=== PATIENT | female | born 1950 | race Caucasian/White ===

== ENCOUNTER 2018-09-17 06:20 | Inpatient (IN) | payer OTHER, SELFPAY ==
[2018-09-02 09:57] VITALS: BMI 30.2
[2018-09-17] VITALS (14 sets, daily range): BP systolic 100–149; BP diastolic 52–77; PULSE 88–120; RESP 10–18; TEMP 36.3–37.3; O2SAT 91–97; BMI 30.2
--- NOTE | 2018-09-17 | DI.RAD.S_ITS ---
PROCEDURE: XR LUMBAR SPINE 2-3V INDICATIONS: L5-S1 TLIF TECHNIQUE: 2 views of the lumbar spine were acquired. COMPARISON: [facility], MR, MR LUMBAR SPINE W CON, 05/14/2017, 10:53. [facility] [place] [facility], RF, LUMBAR TRANSLAMINAR, 06/29/2017, 9:48. [facility], CR, L-SPINE 2-3 VIEWS, 07/28/2017, 13:13. FINDINGS: Two fluoroscopy images demonstrate discectomy and posterior fusion at L5-S1. A disc prosthesis is present. IMPRESSION: Discectomy and posterior fusion at L5-S1. Dictated by: Erika Andrade M.D. on 09/17/2018 at 11:30 Approved by: Erika Andrade M.D. on 09/17/2018 at 11:32
[2018-09-17] MEDS: CEFAZOLIN 2 GM/100 ML FROZ.PIGGY IV ×3 (08:03→23:54)
--- NOTE | 2018-09-17 08:03 | PM.PREOP ---
Pre-operative Note Interval Note Pre-op Check: Yes History & Physical Reviewed by Physician, Yes Exam Performed and Yes History & Physical exam performed today by Physician Changes: No
--- NOTE | 2018-09-17 08:52 | SUR.OPER ---
Prone on spine table, head in foam head support, padded chest and pelvic supports, gel pad at knees, lower legs supported by pillows; nipples, genitalia and toes free of pressure, arms secured on foam padded arm boards at <90 degrees abduction. Tape over blanket at thigh secured to table.
[2018-09-17] MEDS: BUPIVACAINE 0.25% W/ EPI VIAL 30 ML INJ (09:12)
[2018-09-17] MEDS: BUPIVACAINE LIPOSOME 266 MG/20 ML VIAL INJ (09:13)
[2018-09-17] MEDS: ACETAMINOPHEN IV 1,000 MG/100 ML VIAL 400 MG IV (09:50)
[2018-09-17] MEDS: LACTATED RINGERS 1,000 ML 42 ML IV (10:16)
--- NOTE | 2018-09-17 11:16 | PM.OP.1 ---
Operative Date/Time/Diagnoses Date of procedure: 09/17/18 Time of procedure: 08:16 Pre-op diagnosis: 1. L5-S1 history of microdiscectomy and spinal stenosis 2. L4-5, L5-S1 spondylosis with radiculopathy Post-op diagnosis: same Procedure & Clinicians Procedure: 1. L5-S1 Postero-lateral and posterior interbody fusion 2. L5-S1 interbody cage placement. 3. L5-S1 decompressive laminectomy with bilateral facetecomies 4. L5-S1 Posterior non-segmental instrumentation 5. L4-5 left hemilaminectomy 6. [place] of bone marrow from iliac crest 7. Utilization of microsurgical technique and operating microscope Same procedure as scheduled: Yes Indications: Patient has been having chronic back pain and worsening lumbar radiculopathy. Patient failed multiple conservative management with worsening pain weakness and numbness in her lower extremity. Patient has been having difficulty performing activity of daily living. After discussing risks benefits of treatment options, patient elected proceed with surgery. Surgeon: Jeramy Mendoza Animal Tech: Ragini Cooper Click Yes if Unassisted: No Anesthesia Type: General Operative Notes Closure Type: primary Specimen(s): none sent Implants & Drains: Globus revolve screws, Rise cage Estimated Blood Loss (mL): 50 Blood products transfused: none Procedure in detail: Patient was seen in the preoperative area. Risks and benefits of the surgery was discussed with the patient. Informed consent was obtained from the patient and placed in the chart. Surgical site was marked. Patient was taken to the operative room. General anesthesia was administered. Prophylactic antibiotic was given to the patient less than 30 min before the incision was made. Patient was placed into a prone position on the [place] table. Patient's back was then prepped and draped in the sterile fashion. Time-out was performed at this time. Using AP and lateral C-arm imaging the interval between L4-5 L5-S1 was identified and marked on patient's back. A 2 inch incision 2 in from midline was made on the left side first. The fascia was incised in line with skin incision. Globus MARS retractors was placed inside the incision and docked onto the L5 lamina. Using microsurgical technique and operating microscope, a L5 laminectomy and L5-S1 facetectomy was performed using a Kerrison rongeur. The disc space at L5-S1 was identified. And a total diskectomy was performed at L5-S1 level. The endplates were decorticated using a rasp and shaver. The total diskectomy and decortication was performed at L5-S1 level in order to to accomplish a L5-S1 fusion. The local bone from the laminectomy and facetectomy was saved for local bone grafting. After the total diskectomy and decortication was completed, Globus viacell bone graft material was combined with local bone that was harvested earlier. At this time, a separate skin is incision was made over the iliac crest. A Jamshidi needle was inserted into the iliac crest through a separate skin incision. 5 cc of bone marrow aspiration was obtained through the separate skin incision using a Jamshidi needle from the iliac crest. The bone marrow aspiration was combined with local bone and the via cell bone grafting material. The bone grafting material was placed into the L5-S1 interbody space along with a expandable cage. The cage was expanded to its maximum height using the torque limiting screwdriver. At this time the MARS retractor was redirected over the L4 lamina. Using microsurgical technique and operating microscope, a L4-5 heminectomy was performed using the Kerrison rongeur. The ligamentum flavum was also resected at the side of the hemilaminectomy for further decompression of the epidural space. At this time a mirror image incision was made on the right side. The fascia was incised in line with the skin incision. Globus MARS retractor was inserted and docked onto the L5-S1 posterolateral gutter. Using the power drill, posterior-lateral decortication was performed at L5-S1 level until bleeding cortical bone was identified. The remaining bone grafting material was placed into the L5-S1 posterior lateral gutter he order to accomplish posterolateral fusion at the L5-S1 level. Using the double C-arm technique, pedicle screws were placed into the L5 and S1 pedicles bilaterally. This was done by placing the Jamshidi needle into the pedicles, then placing the guidewires over the Jamshidi needle, and finally placing the cannulated screws over the guidewires bilaterally. After the pedicle screws were placed, 2 titanium rods was locked into the heads of the pedicle screws using locking caps and torque limiting screwdriver. After all the hardware was placed, and confirmed with AP and lateral C-arm imaging, the wound was then irrigated with sterile normal saline and packed with Ray-Anirudh gauze for 3 min to accomplish hemostasis. After the gauze was removed the deep fascia was closed with #1 Vicryl suture. The subcutaneous layer was closed with 2-0 Vicryl. The skin was closed with skin rishabh. Patient tolerated the procedure well. There were no complications. Complications: none Condition: stable Disposition: PACU Plan for aftercare: Admit to inpatient hospital
--- NOTE | 2018-09-17 11:19 | P.OP_ITS ---
Operative Date/Time/Diagnoses Date of procedure: 09/17/18 Time of procedure: 08:16 Pre-op diagnosis: 1. L5-S1 history of microdiscectomy and spinal stenosis 2. L4-5, L5-S1 spondylosis with radiculopathy Post-op diagnosis: same Procedure & Clinicians Procedure: 1. L5-S1 Postero-lateral and posterior interbody fusion 2. L5-S1 interbody cage placement. 3. L5-S1 decompressive laminectomy with bilateral facetecomies 4. L5-S1 Posterior non-segmental instrumentation 5. L4-5 left hemilaminectomy 6. [place] of bone marrow from iliac crest 7. Utilization of microsurgical technique and operating microscope Same procedure as scheduled: Yes Indications: Patient has been having chronic back pain and worsening lumbar radiculopathy. Patient failed multiple conservative management with worsening pain weakness and numbness in her lower extremity. Patient has been having difficulty performing activity of daily living. After discussing risks benefits of treatment options, patient elected proceed with surgery. Surgeon: Jeramy Mendoza Platform Mill Supervisor: Ragini Cooper Click Yes if Unassisted: No Anesthesia Type: General Operative Notes Closure Type: primary Specimen(s): none sent Implants & Drains: Globus revolve screws, Rise cage Estimated Blood Loss (mL): 50 Blood products transfused: none Procedure in detail: Patient was seen in the preoperative area. Risks and benefits of the surgery was discussed with the patient. Informed consent was obtained from the patient and placed in the chart. Surgical site was marked. Patient was taken to the operative room. General anesthesia was administered. Prophylactic antibiotic was given to the patient less than 30 min before the incision was made. Patient was placed into a prone position on the [place] table. Patient's back was then prepped and draped in the sterile fashion. Time- out was performed at this time. Using AP and lateral C-arm imaging the interval between L4-5 L5-S1 was identified and marked on patient's back. A 2 inch incision 2 in from midline was made on the left side first. The fascia was incised in line with skin incision. Globus MARS retractors was placed inside the incision and docked onto the L5 lamina. Using microsurgical technique and operating microscope, a L5 laminectomy and L5-S1 facetectomy was performed using a Kerrison rongeur. The disc space at L5-S1 was identified. And a total diskectomy was performed at L5- S1 level. The endplates were decorticated using a rasp and shaver. The total diskectomy and decortication was performed at L5-S1 level in order to to accomplish a L5-S1 fusion. The local bone from the laminectomy and facetectomy was saved for local bone grafting. After the total diskectomy and decortication was completed, Globus viacell bone graft material was combined with local bone that was harvested earlier. At this time, a separate skin is incision was made over the iliac crest. A Jamshidi needle was inserted into the iliac crest through a separate skin incision. 5 cc of bone marrow aspiration was obtained through the separate skin incision using a Jamshidi needle from the iliac crest. The bone marrow aspiration was combined with local bone and the via cell bone grafting material. The bone grafting material was placed into the L5-S1 interbody space along with a expandable cage. The cage was expanded to its maximum height using the torque limiting screwdriver. At this time the MARS retractor was redirected over the L4 lamina. Using microsurgical technique and operating microscope, a L4-5 heminectomy was performed using the Kerrison rongeur. The ligamentum flavum was also resected at the side of the hemilaminectomy for further decompression of the epidural space. At this time a mirror image incision was made on the right side. The fascia was incised in line with the skin incision. Globus MARS retractor was inserted and docked onto the L5-S1 posterolateral gutter. Using the power drill, posterior- lateral decortication was performed at L5-S1 level until bleeding cortical bone was identified. The remaining bone grafting material was placed into the L5-S1 posterior lateral gutter he order to accomplish posterolateral fusion at the L5- S1 level. Using the double C-arm technique, pedicle screws were placed into the L5 and S1 pedicles bilaterally. This was done by placing the Jamshidi needle into the pedicles, then placing the guidewires over the Jamshidi needle, and finally placing the cannulated screws over the guidewires bilaterally. After the pedicle screws were placed, 2 titanium rods was locked into the heads of the pedicle screws using locking caps and torque limiting screwdriver. After all the hardware was placed, and confirmed with AP and lateral C-arm imaging, the wound was then irrigated with sterile normal saline and packed with Ray-Anirudh gauze for 3 min to accomplish hemostasis. After the gauze was removed the deep fascia was closed with #1 Vicryl suture. The subcutaneous layer was closed with 2-0 Vicryl. The skin was closed with skin rishabh. Patient tolerated the procedure well. There were no complications. Complications: none Condition: stable Disposition: PACU Plan for aftercare: Admit to inpatient hospital
[2018-09-17] MEDS: HYDROMORPHONE 2 MG INJ 1 MG IV (11:33)
[2018-09-17] MEDS: HYDROMORPHONE 0.5 MG INJ IV ×2 (12:57→19:10)
[2018-09-17] MEDS: SODIUM CHLORIDE 0.9% 1,000 ML 100 ML IV ×2 (12:58→23:55)
[2018-09-17] MEDS: ONDANSETRON 4 MG/2 ML INJ IV (12:58)
--- NOTE | 2018-09-17 15:35 | PC.NURSE ---
Pt transferred from PACU with O2 2L=98%; mild nausea, improved with IV Zofran; Pt reported severe pain, IV Dilaudid administered; IV fluids infusing to peripheral IV; pt sleeping after admit for 1-2 hours; in room
--- NOTE | 2018-09-17 15:45 | PT.IIE ---
Current Diagnoses Other spondylosis with radiculopathy, lumbar region (09/17/18) Spinal stenosis, lumbar region without neurogenic claudication (09/17/18) Other specified postprocedural states (09/17/18) Surgery Performed Operation Date: 09/17/18 07:45 Actual Procedures p L4-5 hemilaminectomy, L5-S1 TLIF w/Posterior Instru. - Jeramy Mendoza MD Surgical History (Last Updated 09/02/18 @ 09:57 by Judy Lam RN) History of section (Acute) History of total left hip arthroplasty (Acute ~12/2016) Hx of microdiscectomy (Acute 07/28/17) Medical History (Last Updated 09/02/18 @ 09:57 by Judy Lam RN) Depression (Acute) Hyperlipidemia (Acute) Migraines (Acute) Physical Therapy Inpatient Evaluation/Re-Eval M1 PT/OT-IP Prior Functional Status Start: 09/17/18 16:23 Freq: NEEDED Status: Active Protocol: Document 09/17/18 15:45 AB (Rec: 09/17/18 16:48 AB [id number]) Medical Review Prior Functional Status Medical History Reviewed Yes Communication able to make needs known Mobility and Gait pt stated that she is independent with all mobilities and ambulation without AD Social History Household Members spouse Living Arrangements House Number of Floors (Floors) One Floor Number of Stairs To Enter/Railing? 5 steps to enter with R rail ascending Home Environment Standard Height Toilet Walk in Shower Home Equipment Four Wheel Walker Raised Toilet Seat Without Armrests Hand Held Shower Employment Status Retired Additional Social History Comment stated that spouse works and will not be able to be there 24/7 M2 PT-IP Current Condition Start: 09/17/18 16:23 Freq: NEEDED Status: Active Protocol: Document 09/17/18 15:45 AB (Rec: 09/17/18 16:48 AB [id number]) Physical Therapy Current Condition Current Condition Evaluation Date 09/17/18 Treatment Diagnosis s/p L5S1 fusion/lami L4-5 hemilami; difficulty in walking Onset Date 09/17/18 Precautions Lumbar Precautions Log Roll No Twisting Limit Bending Lifting Restriction of 10 lbs Gait Belt above Incisional Area M3 PT-IP Subjective Start: 09/17/18 16:23 Freq: NEEDED Status: Active Protocol: Document 09/17/18 15:45 AB (Rec: 09/17/18 16:48 AB [id number]) Subjective Physical Therapy Visit Type Type Initial Evaluation Visit Start Time 15:45 Visit Stop Time 16:25 Total Visit Minutes 40 Number of SLATE ROOFER HELPER Visits 0 Physical Therapy Visit Comments Patient Comments pt agreed to get up Therapy Pain Assessment Pain When Pain Assessed At Rest Pain Present Pain Present Pain Reported Location Bilateral Lower Back Intensity 9 Scale Used Numeric (1 - 10) Pain Management Techniques Apply Cold M4 PT-IP Mobility and Gait Start: 09/17/18 16:23 Freq: NEEDED Status: Active Protocol: Document 09/17/18 15:45 AB (Rec: 09/17/18 16:48 AB [id number]) PT-Bed Mobility Assessment Rolling Type of Rolling Log Rolling Level of Assist Standby Assistance Supine to Sit Supine to Sit Standby Assistance Scooting Scooting to Edge of Bed Standby Assistance PT-Transfer Assessment Sit to and From Stand Sit to and from Stand Contact Guard Assistance 1 Person Assistance Equipment Transfer Assistive Device Gait Belt Front Wheeled Walker Orthotic/Prosthetic Devices or Brace: No Transfers Transfer Destination Toilet Transfer Technique pt ambulated to the toilet Transfer Ability Level of Assist Contact Guard Assistance Comments Mobility Comments BP in supine: 132/77 pt c/o nausea upon sitting on EOB. pt sat on EOB for ~ 5 min requiring SBA. BP checked 125 /65. pt pt requested to use the toilet and ambulated using FWW. c/o nausea and BP checked: 131/48. stated that nausea has passed. placed chair close to pt and pt transferred using FWW to chair CGA. BP checked in sitting after transfer: 131/71. Nurse informed. Gait Assessment Gait Gait Assistance Required: Contact Guard Assist Distance (Feet) 10 Able to Maintain Weight Bearing Status Yes During Gait Assistive Devices Assistive Device Gait Belt Front Wheeled Walker Orthotic/Prosthetic Devices or Brace: Yes Gait Deviations General Gait Pattern Decreased Stride Length Decreased Feet Clearance Factors Limiting Gait Function Factors Limiting Gait Function Decreased Activity Tolerance Decreased Strength Pain Poor Balance Poor Safety Awareness PT-Balance Assessment Sitting Balance and Reactions Static Sitting Balance Ability Good Dynamic Sitting Balance Ability Good Standing Balance and Reactions Static Standing Balance Ability Fair Dynamic Standing Balance Ability Fair Device Used FWW M5 PT-IP Objective Assessments Start: 09/17/18 16:23 Freq: NEEDED Status: Active Protocol: Document 09/17/18 15:45 AB (Rec: 09/17/18 16:48 AB [id number]) Orientation Orientation/Cognition Level of Alertness Alert Orientation Name Age Birthday Month Date Year Day of Week Place Situation Safety Awareness Understands Safety Issues Gross Range of Motion Lower Extremity ROM Assessment Within Functional Limits Strength Lower Extremity Strength Assessment Within Functional Limits Coordination Assessment Gross Coordination Gross Coordination WNL Muscle Tone Muscle Tone WNL Yes M6 PT-IP Treatment Start: 09/17/18 16:23 Freq: NEEDED Status: Active Protocol: Document 09/17/18 15:45 AB (Rec: 09/17/18 16:48 AB [id number]) Physical Therapy Treatment Exercises Exercises Ankle Pumps Education Education Provided Precautions Weight Bearing Status Post-Op Packet Safety M7 PT-IP Assessment and Plan Start: 09/17/18 16:23 Freq: NEEDED Status: Active Protocol: Document 09/17/18 15:45 AB (Rec: 09/17/18 16:48 AB [id number]) PT Summary Assessment and Plan Potential Rehabilitation Potential Good Status of Condition at Evaluation Evolving Summary Impairments Pain ROM Strength Balance Coordination Sensation Bed Mobility Transfers Gait Activity Tolerance Assessment Summary pt unable to tolerate much activity due to c/o nausea and increase pain. pt plans to go home with spouse to assist but will not have 25/05 care as spouse works. pt will likely improve during hospital stay and may go home when medically stable. caregiver training will be conducted when appropriate. stair climbing training will also be completed prior to d/c. Goals Bed Mobility Goal Independent Transfer Goal Independent Front Wheeled Walker Four Wheeled Walker Gait Goal Independent Front Wheel Walker Four Wheel Walker Gait Distance 150 Other Goals up/down 5 steps with R rail ascending SBA Days to Meet Goals 3 Frequency of Treatment Frequency Of Treatment Twice a Day Treatment Plan Physical Therapy Treatment Plan Bed Mobility Training Transfer Training Gait Training Therapeutic Exercise Balance Retraining Post Op Education Discharge Planning Hot or Cold Pack Neuromuscular Re-ed Coordination Retraining Manual Therapy Other Recommendations and Next Treatment assess safety with use of 4WW Focus Recommendations To Nursing Amount of Assist Needed 1 Person Assist Discharge Recommendations PT Discharge Recommendations Home with Assistance Equipment Needed for Home Before FWW if not safe with 4WW: pt Discharge stated that she can borrow from the senior center
[2018-09-17] MEDS: LORazepam 0.5 MG TABLET PO ×2 (16:32→21:00)
[2018-09-17] MEDS: OXYCODONE IR 5 MG TABLET 10 MG PO ×2 (16:32→21:00)
[2018-09-17] MEDS: LORazepam 2 MG/ML SYRINGE 0.5 MG IV (18:06)
[2018-09-17] MEDS: ATORVASTATIN 20 MG TABLET 40 MG PO (20:26)
[2018-09-17] MEDS: SENNOSIDES 8.6 MG TABLET 17.2 MG PO (20:26)
[2018-09-17] MEDS: DOCUSATE 100 MG CAPSULE PO (20:26)
[2018-09-17] MEDS: CITALOPRAM 20 MG TABLET PO (20:26)
[2018-09-18 04:30] VITALS: BP 111/52; PULSE 97; RESP 17; TEMP 36.7; O2SAT 96
[2018-09-18] MEDS: OXYCODONE IR 5 MG TABLET 10 MG PO ×4 (04:41→14:51)
[2018-09-18 05:00] VITALS: O2SAT 97
[2018-09-18 05:59] LABS: Hematocrit 33.2 % (36-46); Hemoglobin 11.2 g/dL (12.0-16.0)
[2018-09-18] MEDS: DOCUSATE 100 MG CAPSULE PO (08:36)
[2018-09-18] MEDS: SODIUM CHLORIDE 0.9% FLUSH 10 ML IV (08:42)
--- NOTE | 2018-09-18 09:31 | PT.IPTN ---
Current Diagnoses Other spondylosis with radiculopathy, lumbar region (09/17/18) Spinal stenosis, lumbar region without neurogenic claudication (09/17/18) Other specified postprocedural states (09/17/18) Surgery Performed Operation Date: 09/17/18 07:45 Actual Procedures p L4-5 hemilaminectomy, L5-S1 TLIF w/Posterior Instru. - Jeramy Mendoza MD Physical Therapy Treatment Note M2 PT-IP Current Condition Start: 09/17/18 16:23 Freq: NEEDED Status: Active Protocol: Document 09/17/18 15:45 AB (Rec: 09/17/18 16:48 AB [id number]) Physical Therapy Current Condition Current Condition Evaluation Date 09/17/18 Treatment Diagnosis s/p L5S1 fusion/lami L4-5 hemilami; difficulty in walking Onset Date 09/17/18 Precautions Lumbar Precautions Log Roll No Twisting Limit Bending Lifting Restriction of 10 lbs Gait Belt above Incisional Area M3 PT-IP Subjective Start: 09/17/18 16:23 Freq: NEEDED Status: Active Protocol: Document 09/18/18 09:31 AB (Rec: 09/18/18 10:18 AB [id number]) Subjective Physical Therapy Visit Type Type Treatment Note Visit Start Time 09:31 Visit Stop Time 10:06 Total Visit Minutes 35 Number of BIOPROCESS ENGINEER Visits 0 Physical Therapy Visit Comments Patient Comments I feel flushed. Therapy Pain Assessment Pain When Pain Assessed At Rest Pain Present Pain Present Pain Reported Location Bilateral Lower Back Intensity 4 Scale Used Numeric (1 - 10) Pain Management Techniques Apply Cold Re-positioning Timing of Activity with Medications M4 PT-IP Mobility and Gait Start: 09/17/18 16:23 Freq: NEEDED Status: Active Protocol: Document 09/18/18 09:31 AB (Rec: 09/18/18 10:18 AB [id number]) PT-Bed Mobility Assessment Rolling Type of Rolling Log Rolling Level of Assist Standby Assistance Supine to Sit Supine to Sit Standby Assistance Sit to Supine Sit to Supine Standby Assistance Scooting Scooting to Edge of Bed Standby Assistance PT-Transfer Assessment Sit to and From Stand Sit to and from Stand Standby Assistance Use of Upper Extremities Equipment Transfer Assistive Device Gait Belt Front Wheeled Walker Orthotic/Prosthetic Devices or Brace: No Transfers Transfer Technique pt ambulated to the toilet Comments Mobility Comments completed transfer/ambulation using FWW bed to toilet SBA. pt was able to complete toileting without assist and ambulated towards the sink for handwashing and was able to maintain standing balance SBA. Gait Assessment Gait Gait Assistance Required: Standby Assistance Distance (Feet) 225 Able to Maintain Weight Bearing Status Yes During Gait Assistive Devices Assistive Device Gait Belt 4 Wheeled Walker Factors Limiting Gait Function Factors Limiting Gait Function Decreased Activity Tolerance Decreased Strength Limited Range of Motion Pain Poor Balance Comments Gait Comments pt moving well with FWW. pt has a 4WW and assessed safety with use of 4WW. pt was able to ambulate using 4WW ~ 225 ft SBA. pt refused to do stair climbing this morning. M5 PT-IP Objective Assessments Start: 09/17/18 16:23 Freq: NEEDED Status: Active Protocol: Document 09/17/18 15:45 AB (Rec: 09/17/18 16:48 AB [id number]) Orientation Orientation/Cognition Level of Alertness Alert Orientation Name Age Birthday Month Date Year Day of Week Place Situation Safety Awareness Understands Safety Issues Gross Range of Motion Lower Extremity ROM Assessment Within Functional Limits Strength Lower Extremity Strength Assessment Within Functional Limits Coordination Assessment Gross Coordination Gross Coordination WNL Muscle Tone Muscle Tone WNL Yes M6 PT-IP Treatment Start: 09/17/18 16:23 Freq: NEEDED Status: Active Protocol: Document 09/17/18 15:45 AB (Rec: 09/17/18 16:48 AB [id number]) Physical Therapy Treatment Exercises Exercises Ankle Pumps Education Education Provided Precautions Weight Bearing Status Post-Op Packet Safety M7 PT-IP Assessment and Plan Start: 09/17/18 16:23 Freq: NEEDED Status: Active Protocol: Document 09/18/18 09:31 AB (Rec: 09/18/18 10:18 AB [id number]) PT Summary Assessment and Plan Potential Rehabilitation Potential Good Summary Progress Towards Goals Progressing Toward Goals Assessment Summary pt requiring SBA with mobility and may go home with assist. stated that she has a family emergency and spouse will not be available to assist her but will call her friend to assist her. refused to do stair training this morning but will attempt this afternoon. Goals Bed Mobility Goal Independent Transfer Goal Independent Front Wheeled Walker Four Wheeled Walker Gait Goal Independent Front Wheel Walker Four Wheel Walker Gait Distance 150 Other Goals up/down 5 steps with R rail ascending SBA Days to Meet Goals 3 Frequency of Treatment Frequency Of Treatment Twice a Day Treatment Plan Physical Therapy Treatment Plan Bed Mobility Training Transfer Training Gait Training Therapeutic Exercise Balance Retraining Post Op Education Discharge Planning Hot or Cold Pack Neuromuscular Re-ed Coordination Retraining Manual Therapy Other Recommendations and Next Treatment assess safety with use of 4WW Focus Recommendations To Nursing Amount of Assist Needed 1 Person Assist Discharge Recommendations PT Discharge Recommendations Home with Assistance
--- NOTE | 2018-09-18 11:10 | OT.IP.EVAL ---
Current Diagnoses Other spondylosis with radiculopathy, lumbar region (09/17/18) Spinal stenosis, lumbar region without neurogenic claudication (09/17/18) Other specified postprocedural states (09/17/18) Surgery Performed Operation Date: 09/17/18 07:45 Actual Procedures p L4-5 hemilaminectomy, L5-S1 TLIF w/Posterior Instru. - Jeramy Mendoza MD Past Medical History (Last Updated 09/02/18 @ 09:57 by Judy Lam RN) Depression (Acute) Hyperlipidemia (Acute) Migraines (Acute) Surgical History (Last Updated 09/02/18 @ 09:57 by Judy Lam RN) History of section (Acute) History of total left hip arthroplasty (Acute ~12/2016) Hx of microdiscectomy (Acute 07/28/17) Occupational Therapy Inpatient Evaluation/Re-Eval M1 PT/OT-IP Prior Functional Status Start: 09/17/18 16:23 Freq: NEEDED Status: Active Protocol: Document 09/17/18 15:45 AB (Rec: 09/17/18 16:48 AB [id number]) Medical Review Prior Functional Status Medical History Reviewed Yes Communication able to make needs known Mobility and Gait pt stated that she is independent with all mobilities and ambulation without AD Social History Household Members spouse Living Arrangements House Number of Floors (Floors) One Floor Number of Stairs To Enter/Railing? 5 steps to enter with R rail ascending Home Environment Standard Height Toilet Walk in Shower Home Equipment Four Wheel Walker Raised Toilet Seat Without Armrests Hand Held Shower Employment Status Retired Additional Social History Comment stated that spouse works and will not be able to be there 25/05 M1 PT/OT-IP Prior Functional Status Start: 09/18/18 10:52 Freq: NEEDED Status: Active Protocol: Document 09/18/18 10:52 [facility] (Rec: 09/18/18 11:10 [facility] [id number]) Medical Review Prior Functional Status Medical History Reviewed Yes Diet/Fluid Consistency Regular Thin Liquids Communication able to make needs known Mobility and Gait pt stated that she is independent with all mobilities and ambulation without AD Activities of Daily Living and IADL's Independent for all Adl and IADL needs. Social History Household Members spouse Living Arrangements House Number of Floors (Floors) One Floor Number of Stairs To Enter/Railing? 5 steps to enter with R rail ascending Home Environment Standard Height Toilet Walk in Shower Home Equipment Four Wheel Walker Raised Toilet Seat Without Armrests Hand Held Shower Employment Status Retired Additional Social History Comment stated that spouse works and will not be able to be there 25/05. Ptstates has family emergency and has to fly out of town tomorrow . Pt's daughter may be available to come stay with pt as well as pt's friends. M2 OT-IP Current Condition Start: 09/18/18 10:52 Freq: Status: Active Protocol: Document 09/18/18 10:52 [facility] (Rec: 09/18/18 11:10 [facility] [id number]) Occupational Therapy Current Condition Current Condition Evaluation Date 09/18/18 Treatment Diagnosis Spinal Stenosis Diagnosis Onset Date 09/17/18 Post Operative Precautions Lumbar Precautions Log Roll No Twisting Limit Bending Lifting Restriction of 10 lbs Gait Belt above Incisional Area M3 OT- IP Subjective and Pain Start: 09/18/18 10:52 Freq: Status: Active Protocol: Document 09/18/18 10:52 [facility] (Rec: 09/18/18 11:10 [facility] [id number]) OT- Subjective Occupational Therapy Visit Type Type Initial Evaluation Visit Start Time 10:05 Visit Stop Time 10:45 Total Visit Minutes 40 Occupational Therapy Visit Comments Patient Comments Pt agreeable to get up. Patient/Caregiver Goals Pt wanting to go home. OT Pain Assessment Pain When Pain Assessed During Mobility Pain Present Pain Present Pain Reported Location Bilateral Lower Back Intensity 3 Scale Used Numeric (1 - 10) M4 OT- IP ADL's Start: 09/18/18 10:52 Freq: Status: Active Protocol: Document 09/18/18 10:52 [facility] (Rec: 09/18/18 11:10 [facility] [id number]) OT ADL-Grooming General Evaluation Grooming Ability Independent Comments OT Grooming Comments Independent to retrieve items and for grooming while standing at the sink with FWW. OT ADL-Oral Care General Eval Oral Care Ability Independent OT ADL-Dressing Comments OT Dressing Comments Re-educated pt on use of AED for LB dressing, pt states remembers use of AED from hip surgery last year. OT ADL-Toileting Comments OT Toileting Comments Pt states just used the toilet when PT was present. Pt has RTS at home with no handles to use. M5 OT- IP IADL's Start: 09/18/18 10:52 Freq: Status: Active Protocol: Document 09/18/18 10:52 [facility] (Rec: 09/18/18 11:10 [facility] [id number]) OT-Instrumental Activities of Daily Living Home Safety Awareness Awareness of Need for Assistance at Home Good Awareness Ability to Problem Solve Emergency Able to Problem Solve Situations Home Safety Comments Pt looking to get daughter to stay with her as has to leave town due to family emergency. M6 OT- IP Functional Cognition Start: 09/18/18 10:52 Freq: Status: Active Protocol: Document 09/18/18 10:52 [facility] (Rec: 09/18/18 11:10 [facility] [id number]) Cognitive Factors Limiting Selfcare Function Cognitive Ability Level of Alertness Alert Patient Orientation Name Place Situation Attention Span Ability Capable of Focused Attention Capable of Sustained Attention Ability to Follow Commands Able to Follow Multi-Step Commands Memory Description Immediate Intact Short Term Intact Working Intact Safety Awareness No Deficits Noted Problem Solving Ability No deficits Noted Cognitive Comments Cognitive Assessment Comments Pt doing well with back precautions. Still recommend someone to assist with needs, as at times pt forgetful as she isgoing through stressful time of recent family emergency. OT- Vision and Hearing OT- Hearing Assessment OT- Hearing Assessment WFL OT- Vision Assessment Visual Acuity WFL M7 OT- IP Mobility and Balance Start: 09/18/18 10:52 Freq: Status: Active Protocol: Document 09/18/18 10:52 [facility] (Rec: 09/18/18 11:10 [facility] [id number]) OT-Transfer Assessment Sit to and From Stand Sit to and from Stand Standby Assistance Transfers Transfer Ability Standby Assistance Devices Transfer Assistive Devices Gait Belt Front Wheeled Walker OT- Balance Assessment Sitting Balance and Reactions Static Sitting Balance Ability Normal Dynamic Sitting Balance Ability Normal Standing Balance and Reactions Static Standing Balance Ability Good Dynamic Standing Balance Ability Fair M8 OT- IP Objective Assessments Start: 09/18/18 10:52 Freq: Status: Active Protocol: Document 09/18/18 10:52 [facility] (Rec: 09/18/18 11:10 [facility] [id number]) OT Gross Range of Motion Upper Extremity Range of Motion Assessment Within Functional Limits M9 OT- IP Assessment and Plan Start: 09/18/18 10:52 Freq: Status: Active Protocol: Document 09/18/18 10:52 [facility] (Rec: 09/18/18 11:10 [facility] [id number]) OT Summary Assessment and Plan Potential Rehabilitation Potential Excellent Analytic Complexity at Evaluation Low Summary OT Impairments Pain Functional Mobility Dressing Bathing Progress Towards Goals Progressing Toward Goals Assessment Summary Pt doing well, good understanding of all back precautions, and looking to go home today. Main barrier due to unexpectantly leaving the country, pt trying to find someone to stay with her. Therefore, hopefully home today with daughter or friends. Goals Dressing Goal Standby Assistance Bathing Goal Standby Assistance Patient/Caregiver Education Goal Demonstrate Post-Op Precautions Caregiver Independent Assisting Patient Days to Meet Goals 2 Frequency of Treatment Frequency Of Treatment Once a Day Treatment Plan OT Treatment Plan ADL Training Functional Mobility Patient/Family Education Discharge Planning Discharge Recommendations OT Discharge Recommendations Home with Assistance
--- NOTE | 2018-09-18 11:33 | P.PN_ITS ---
Subjective Date Patient Seen: 09/18/18 Time Patient Seen: 11:30 Interval history: POD #1 status post L5-S1 TLIF, L4-[address] Mendoza. Patient's pain well controlled with oxycodone. She is mobilizing with physical therapy. She is urinating and eating without difficulty or assistance. Patient did have a family emergency last night and is working on home care today. Exam Vital Signs (past 8 hours): - 09/18/18 04:30 09/18/18 05:00 Temperature 98.0 F Pulse Rate 97 H Respiratory Rate 17 Blood Pressure 111/52 L Pulse Oximetry 96 97 Oxygen Delivery Method Room Air Oxygen Flow Rate 0 Narrative Exam Narrative: Patient is sitting at bedside chair no acute distress. She is alert and oriented x3. Dressing on back at [facility]. Calves are soft, compressible , nontender bilaterally. Sensation intact light touch throughout bilateral lower extremities. She is able to actively dorsiflex plantar flex. Objective Labs Result Diagrams: 09/18/18 05:45 Labs: Laboratory Results - last 24 hr 09/18/18 05:45 Hgb 11.2 L Hct 33.2 L Assessment & Plan Post-op (1) S/P lumbar fusion: Current Visit: Yes Status: Acute Postoperative Procedures Operation Date: 09/17/18 07:45 Actual Procedures Side Surgeon p L4-5 hemilaminectomy, L5-S1 TLIF w/Posterior Instru. Jeramy Mendoza MD Continue to mobilize with physical therapy. Patient has a least do stairs. No excessive bending, lifting, or twisting. Patient will figure out ride for going home due to family emergency unsure at this time. Continue current pain management. Patient will likely discharge today or tomorrow. Quality VTE Deep Vein Thrombosis/Pulmonary Embolism Present on Admission: No
--- NOTE | 2018-09-18 12:50 | PT.IPTN ---
Current Diagnoses Other spondylosis with radiculopathy, lumbar region (09/17/18) Spinal stenosis, lumbar region without neurogenic claudication (09/17/18) Arthrodesis status (09/17/18) Other specified postprocedural states (09/17/18) Surgery Performed Operation Date: 09/17/18 07:45 Actual Procedures p L4-5 hemilaminectomy, L5-S1 TLIF w/Posterior Instru. - Jeramy Mendoza MD Physical Therapy Treatment Note M2 PT-IP Current Condition Start: 09/17/18 16:23 Freq: NEEDED Status: Active Protocol: Document 09/17/18 15:45 AB (Rec: 09/17/18 16:48 AB [id number]) Physical Therapy Current Condition Current Condition Evaluation Date 09/17/18 Treatment Diagnosis s/p L5S1 fusion/lami L4-5 hemilami; difficulty in walking Onset Date 09/17/18 Precautions Lumbar Precautions Log Roll No Twisting Limit Bending Lifting Restriction of 10 lbs Gait Belt above Incisional Area M3 PT-IP Subjective Start: 09/17/18 16:23 Freq: NEEDED Status: Active Protocol: Document 09/18/18 12:50 AB (Rec: 09/18/18 14:36 AB [id number]) Subjective Physical Therapy Visit Type Type Treatment Note Visit Start Time 12:50 Visit Stop Time 13:21 Total Visit Minutes 31 Number of MEDICAL MALPRACTICE PARALEGAL Visits 0 Physical Therapy Visit Comments Patient Comments pt agreeable to do PT Therapy Pain Assessment Pain When Pain Assessed At Rest Pain Present Pain Present Pain Reported Location Bilateral Lower Back Intensity 4 Scale Used Numeric (1 - 10) Pain Management Techniques Timing of Activity with Medications M4 PT-IP Mobility and Gait Start: 09/17/18 16:23 Freq: NEEDED Status: Active Protocol: Document 09/18/18 12:50 AB (Rec: 09/18/18 14:36 AB [id number]) PT-Bed Mobility Assessment Rolling Type of Rolling Log Rolling Level of Assist Standby Assistance Sit to Supine Sit to Supine Standby Assistance Scooting Scooting to Edge of Bed Standby Assistance PT-Transfer Assessment Sit to and From Stand Sit to and from Stand Standby Assistance Gait Assessment Gait Gait Assistance Required: Standby Assistance Distance (Feet) 250 Able to Maintain Weight Bearing Status Yes During Gait Assistive Devices Assistive Device Gait Belt 4 Wheeled Walker Orthotic/Prosthetic Devices or Brace: No Factors Limiting Gait Function Factors Limiting Gait Function Limited Range of Motion Pain Poor Balance Comments Gait Comments pt ambulated ~ 250 ft using 4WW SBA towards the stairs and was able to ambulate back to her room ~ 250 ft uisng 4WW SBA. able to managel 4WW safely. Stair Climbing Assessment Evaluation Level of Assist On Stairs Standby Assistance Devices Stair Climbing Assistive Devices Right Railing Technique/Endurance Stair Climbing Direction Ascend and Descend Stair Climbing Technique Step to Step Number of Steps Climbed 3 Query Text: Stair Climbing Set # Repetitions (reps) 2 M5 PT-IP Objective Assessments Start: 09/17/18 16:23 Freq: NEEDED Status: Active Protocol: Document 09/17/18 15:45 AB (Rec: 09/17/18 16:48 AB [id number]) Orientation Orientation/Cognition Level of Alertness Alert Orientation Name Age Birthday Month Date Year Day of Week Place Situation Safety Awareness Understands Safety Issues Gross Range of Motion Lower Extremity ROM Assessment Within Functional Limits Strength Lower Extremity Strength Assessment Within Functional Limits Coordination Assessment Gross Coordination Gross Coordination WNL Muscle Tone Muscle Tone WNL Yes M6 PT-IP Treatment Start: 09/17/18 16:23 Freq: NEEDED Status: Active Protocol: Document 09/18/18 12:50 AB (Rec: 09/18/18 14:36 AB [id number]) Physical Therapy Treatment Education Education Provided Precautions Safety M7 PT-IP Assessment and Plan Start: 09/17/18 16:23 Freq: NEEDED Status: Active Protocol: Document 09/18/18 12:50 AB (Rec: 09/18/18 14:36 AB [id number]) PT Summary Assessment and Plan Potential Rehabilitation Potential Good Summary Impairments Pain ROM Strength Balance Bed Mobility Transfers Gait Activity Tolerance Progress Towards Goals Progressing Toward Goals Assessment Summary Pt doing well with mobility and plans to go home with her daughter to assist on the first night upon d/c and then a friend can stay with her for ~ 2 days afterwards to assist her. Pt may go home when medically stable. Goals Bed Mobility Goal Independent Transfer Goal Independent Front Wheeled Walker Four Wheeled Walker Gait Goal Independent Front Wheel Walker Four Wheel Walker Gait Distance 250 Other Goals up/down 5 steps with R rail ascending SBA Days to Meet Goals 3 Frequency of Treatment Frequency Of Treatment Twice a Day Treatment Plan Physical Therapy Treatment Plan Bed Mobility Training Transfer Training Gait Training Therapeutic Exercise Balance Retraining Post Op Education Discharge Planning Hot or Cold Pack Neuromuscular Re-ed Coordination Retraining Manual Therapy Recommendations To Nursing Amount of Assist Needed 1 Person Assist Discharge Recommendations PT Discharge Recommendations Home with Assistance
--- NOTE | 2018-09-18 13:08 | PC.NURSE ---
Addendum entered by Paige Carmichael R.N. 09/18/18 15:13: 1510-patient escorted to daughter's vehicle, all belongings sent with patient. ferry pass provide, discharge summary provided and discussed. Rx given to daughter. Daughter taking patient home and will be assisting w/care. Original Note: 0730-Bedside report received, safety checks done. assumed care of patient. 0800-Assessment complete, patient A&Ox4, lynn, ADRIEN, denies numbness/tingling; no nausea/no emesis; reports good pain control w/ 5mg PRN Oxy administered for 7/10 pain w/good relief. 1000-plan for patient discharge this afternoon; patient needs to work w/PT on stairs. 1150-PRN pain medication administered per patient request, current pain level 3/10. Patient requesting Zofran with discharge; discussed w/PA-awaiting Rx. 1300-patient's daughter will be here around 1400; patient requesting dory pass; notified [employer]ER; now Working w/PT.
--- NOTE | 2018-09-18 13:33 | CM.DANOTE ---
Discharge Planning/Care Management CM Discharge Assessment Start: 09/18/18 13:31 Freq: Status: Active Protocol: Document 09/18/18 13:32 (Rec: 09/18/18 13:33 [id number]) Discharge Planning Assessment Assigned Funeral Planning Counselor BOBBI Chan Advance Directives? Yes Advance Directives on File No History Provided By Patient Medical Record Has Patient been admitted in last 30 No days? Prior Living Arrangements House Household Members spouse Type of transporation used prior to Drives own vehicle admit Independent with ADL's Yes Is patient alert and oriented? Yes DME Already Rented / Owned FWW / Walker Patient/Family Preference OP PT Therapy Discharge Plan Home Community Services Physical Therapy Transportation Arrangement Daughter will supervisor opening and picking patient. Additional Comment Daughter will stay with patient overnight and then patient will have a friend spend a few days with her since her is out of the country. Whiteboard Updated in Patient Room with Yes name and ext. # of Funeral Planning Counselor Please Provide Date Initial DC 09/18/18 Assessment Was Performed Pre-Anesthesia Assessment Start: 09/02/18 09:57 Freq: Status: Complete Protocol: Document 09/02/18 09:57 CAB (Rec: 09/02/18 10:11 CAB [id number]) Pre-Anesthesia Assessment Patient Information Reviewed Via Phone Assessment Assessment Completed With Patient Lab Results BMP/CMP CBC EKG Comment Labs/EKG - [facility] records to be scanned to chart Primary Care Provider Kaila Naranjo Seen Specialist in Last 12 Months Yes Specialist Seen Orthopedist Primary Language Arabic Leadership Program Associate Required No Height 157.48 cm Weight 74.843 kg Body Mass Index (BMI) 30.2 Hearing Ability Normal Visual Assist Glasses Dentition Type Teeth, Natural Present Barriers to Learning None Hx Anesthesia Reactions Yes: Pretty foggy after hip surgery Hx Family Anesthesia Reaction No Hx Malignant Hyperthermia No Hx Blood Transfusions No Anesthesia Review Requested No Rock Dust Sprayer No alcohol intake current alcohol intake frequency a few times a week Smoking Status Former smoker how long ago did patient quit smoking Quit 35 years ago Substance Use Type marijuana Comment Pt advised not to smoke marijuana 24 hours prior to surgery Pain Present Pain Reported Musculoskeletal Symptoms Abnormal Gait Back Pain Difficulty Walking Radiating Pain into Limb Tingling History of Falling (Recent or History of No ) Patient is completely paralyzed or No completely immobile Mental Status Oriented to own ability Is patient on oxygen? No Does patient have LECHUGA/SOB No Hx Sleep Apnea No Currently Taking a Beta Stacie No Can You Climb a Flight of Stairs Without Yes SOB Hx Chest Pain No Hx SOB No Hx Syncope or Dizziness No Anti-Coagulant Therapy No Has a Block Paver No Cardiac Testing No Hx Pacemaker/ICD No Pacemaker Rep Required? No Cardiac Clearance Received Not Applicable Diet Type At Home Regular dysphagia No Bladder Pattern Nocturia Urinary Catheter Present No Hx Urinary Self Catheterization No Diabetes No Patient No Lactating No Hx Drug Resistant Organism No Presence of External or Internal Medical No Devices Have you traveled outside the [facility] in the last 30 days? Marital Status Lives With spouse children Prior Living Arrangements House Number of Floors (Floors) One Floor Number of Stairs To Enter/Railing? 6 steps, railing present Support System Child/Children Friend(s) Spouse Does the Patient Have Assistance After Yes Surgery Patient Discharge Plan Description Return Home Comment Pt advised 1-2 night length of stay per surgeon's office Feels Safe in Current Environment Yes Been Physically Hurt or Threatened By a No Person in Current Environment Do you have thoughts of harming yourself None or others? Are you currently considering suicide? No Do you have a plan to hurt yourself or No Plan others? Do You Have Any Spiritual Beliefs That No May Affect Your HC Choices? Do You Have Any Cultural Practices That No May Affect Your HC Choices? Spiritual Referral None Who Can We Speak to About Patient's Care Family, friends Identifying Code for Release of Patient Declines to issue Information Health Care Proxy/Next of Kin Harrison () Health Care Proxy Emergency Contact Name Harrison () Emergency Contact Advance Directives? Yes Advance Directives on File No Requested Patient Bring Advanced Yes Directives DOS Power of Roving Marker Yes Power of Roving Marker Name Harrison () Power of Roving Marker PAC Instructions Durable medical equipment Medications to take/avoid Nasal antibiotic No ETOH/petroleum product on skin DOS NPO Post-op transportation Pre-surgical wash Sturdy shoes/comfortable clothes Do not bring valuables and remove jewelry
== END 2018-09-18 15:14 | disposition home or self-care (01) | DRG 455 ==
PROVIDERS: Admitting Provider Orthopaedic Surgery Orthopaedic Surgery of the Spine; Family Provider Family Medicine; PCP Family Medicine; Visit Provider Orthopaedic Surgery Orthopaedic Surgery of the Spine
PROC: 0SG30AJ Fusion of Lumbosacral Joint with Interbody Fusion Device, Posterior Approach, Anterior Column, Open Approach (ICD-10-PCS; principal; 2018-09-17 07:45)
DX: M48.061 Spinal stenosis, lumbar region without neurogenic claudication (principal); M47.26 Other spondylosis with radiculopathy, lumbar region; F41.9 Anxiety disorder, unspecified
CPT/HCPCS: 36415; 72100; 76001; 85014; 85018; 97116; 97162; 97165; 97530; C1776; C9290; J0131; J0171; J0330; J0690; J1100; J1170; J2060; J2250; J2405; J2704; J3010

== ENCOUNTER → 2019-11-23 13:14 | Outpatient (CLI) | payer OTHER, MEDICARE, SELFPAY ==
[2018-09-17 12:39] VITALS: BMI 30.2
[2019-11-23 14:00] LABS: Hemoglobin A1C% w Est Avg Glu 5.5 % (4.0-6.0)
[2019-11-23 14:12] LABS: Alanine Aminotransferase 28 IU/L (<35); Albumin 4.7 g/dL (3.5-5.0); Albumin Globulin Ratio 1.6 (1.0-2.8); Alkaline Phosphatase 92 U/L (38-126); Aspartate Aminotransferase 32 IU/L (14-36); BUN Creatinine Ratio 21.4 (6-22); Bilirubin Total 0.3 mg/dL (0.2-1.3); Blood Urea Nitrogen 15 mg/dL (7-17); Carbon Dioxide 32 mmol/L (22-32); Chloride 100 mmol/L (98-107); Estimated Glomerular Filt Rate > 60.0 mL/min (>60); Glucose 88 mg/dL (80-110); HEMOLYSIS < 15 (0-50); Potassium 4.3 mmol/L (3.4-5.1); Sodium 140 mmol/L (137-145); Total Protein 7.7 g/dL (6.3-8.2)
== END ==
PROVIDERS: PCP Family Medicine; Visit Provider Orthopaedic Surgery
DX: Z01.818 Encounter for other preprocedural examination (principal); Z01.812 Encounter for preprocedural laboratory examination; R73.9 Hyperglycemia, unspecified; N39.0 Urinary tract infection, site not specified
CPT/HCPCS: 36415; 80053; 83036; 93005

== ENCOUNTER → 2019-12-30 09:34 | Outpatient (CLI) | payer MEDICARE, OTHER, SELFPAY ==
[2018-09-17 12:39] VITALS: BMI 30.2
[2019-12-30 09:50] LABS: Bacteria Urine None Seen; RBC Urine None Seen (0-5/HPF); WBC Urine None Seen (0-5/HPF)
[2019-12-30 10:53] LABS: Add Manual Diff / Slide Review NO; Basophils Absolute Auto 100 /uL (0-100); Eosinophils Absolute Auto 200 /uL (0-450); Eosinophils Percent Auto 2.5 % (2-4); Hematocrit 39.6 % (36-46); Hemoglobin 13.4 g/dL (12.0-16.0); Lymphocytes Absolute Auto 2200 /uL (1100-4500); Lymphocytes Percent Auto 35.1 % (25-40); Mean Corpuscular HGB Conc 33.8 % (30-36); Mean Corpuscular Hemoglobin 28.6 PG (26-34); Mean Corpuscular Volume 84.6 fL (80-100); Monocytes Absolute Auto 500 /uL (0-900); Monocytes Percent Auto 7.3 % (3-14); Neutrophils Absolute Auto 3400 /uL (1500-7000); Neutrophils Percent Auto 54.1 % (50-75); Platelet Count 395 X10^3/uL (150-400); Red Blood Cell Count 4.69 X10^6/uL (4.0-5.2); Red Cell Distribution Width 14.3 % (11.6-14.8); White Blood Cell Count 6.3 X10^3/uL (4.5-11.0)
[2019-12-30 11:49] LABS: Appearance Urine UA SL CLOUDY; Bilirubin Urine UA NEGATIVE (NEGATIVE); Color Urine UA YELLOW; Glucose Urine UA NEGATIVE (Negative); Ketones Urine UA NEGATIVE (NEGATIVE); Leukocyte Esterase Urine UA NEGATIVE (NEGATIVE); Nitrite Urine UA POSITIVE (Negative); Occult Blood Urine UA NEGATIVE (Negative); Protein Urine UA NEGATIVE (Negative); Urobilinogen Urine UA 0.2 E.U./dL (0.2); pH Urine UA 6.5 (4.5-8.0)
[2019-12-30 11:58] LABS: Amorphous Sediment Urine 1+; Culture Indicated Urine Specimen Cultured; Mucus Urine 1+ (Negative)
== END ==
PROVIDERS: PCP Family Medicine; Referring Provider Orthopaedic Surgery; Visit Provider Orthopaedic Surgery
DX: Z01.812 Encounter for preprocedural laboratory examination (principal); N39.0 Urinary tract infection, site not specified
CPT/HCPCS: 36415; 81001; 85025

== ENCOUNTER 2020-01-10 06:10 | Inpatient (IN) | payer MEDICARE, OTHER, SELFPAY ==
[2018-09-17 12:39] VITALS: BMI 30.2
[2019-12-27 09:54] VITALS: BMI 27.4
[2020-01-10] VITALS (12 sets, daily range): BP systolic 102–139; BP diastolic 49–75; PULSE 72–113; RESP 10–20; TEMP 36.1–36.7; O2SAT 93–99; BMI 26.8
--- NOTE | 2020-01-10 | DI.RAD.S_ITS ---
PROCEDURE: XR HIP W PEL IF DONE RT 2V INDICATIONS: RIGHT EULALIA TECHNIQUE: 2 view(s) of the hip acquired. COMPARISON: [facility], CR, [id number] W PEL IF PERFORMED, 12/22/2016, 15:12. FINDINGS: Bones: Patient is status post right hip arthroplasty, with hardware components in expected positions. The hip joint appears congruent. The visualized bony structures appear intact. Soft tissues: Overlying postoperative changes are noted. No suspicious soft tissue densities. Prior left total hip arthroplasty also, partially visualized. . IMPRESSION: Normal alignment after right total hip arthroplasty. Prior left total hip arthroplasty partially visualized. Dictated by: Cortes Garcia M.D. on 01/10/2020 at 11:57 Approved by: Cortes Garcia M.D. on 01/10/2020 at 11:58
--- NOTE | 2020-01-10 06:00 | DI.RAD.S_ITS ---
PROCEDURE: XR HIP W PEL IF DONE RT 2V INDICATIONS: post op TECHNIQUE: AP pelvis with lateral view(s) of the right hip(s). COMPARISON: [facility], , XR HIP W PEL IF DONE RT 2V, 01/10/2020, 8:21. FINDINGS: Partially visualized lumbar spinal fixation hardware. Bones: No fractures or dislocations. Pelvic ring appears intact. No suspicious bony lesions. Bilateral hip arthroplasties. There is expected postoperative alignment. Hardware appears intact. Soft tissues: The visualized bowel gas pattern is normal. No suspicious soft tissue calcifications. IMPRESSION: Right hip arthroplasty in expected postoperative alignment. Dictated by: Devonte Cotto M.D. on 01/10/2020 at 13:40 Approved by: Devonte Cotto M.D. on 01/10/2020 at 13:42
[2020-01-10] MEDS: PREGABALIN 75 MG CAPSULE PO (06:47)
[2020-01-10] MEDS: CELECOXIB 200 MG CAPSULE PO (06:47)
[2020-01-10] MEDS: VANCOMYCIN 1,000 MG/200 ML PIGGYBACK 200 MG IV (06:47)
[2020-01-10] MEDS: ACETAMINOPHEN 325 MG TABLET 975 MG PO (06:47)
[2020-01-10] MEDS: LACTATED RINGERS 1,000 ML 42 ML IV ×3 (06:58→10:28)
--- NOTE | 2020-01-10 07:49 | PM.PREOP ---
Pre-operative Note Interval Note History & Physical reviewed/Exam performed by Physician: Yes Changes to H&P: No
--- NOTE | 2020-01-10 07:49 | PM.OP.1 ---
Operative Date/Time/Diagnoses Date of procedure: 01/10/20 Time of procedure: 07:58 Pre-op diagnosis: right hip OA Post-op diagnosis: same Procedure & Clinicians Procedure: Right total hip arthroplasty anterior approach Same procedure as scheduled: Yes Indications: The patient has had progressively worsening right hip pain with radiographic changes consistent with arthritis. Non-operative management has failed and the patient has requested total hip replacement. The risks, benefits and alternatives to surgery were discussed with the patient prior to proceeding. Risks discussed included, but were not limited to, failure to relieve pain, leg length discrepancy, dislocation, stiffness, infection, nerve damage, deep venous thrombosis, pulmonary embolism, stroke, coma, heart attack, permanent paralysis and , as well as the potential need for eventual revision of the prosthetic. Surgeon: Shira Kaiser Blueprinting And Photocopy Supervisor: Isai Sen Anesthesia Type: General and Spinal Operative Notes Findings: Severe right hip osteoarthritis, good stability Closure Type: primary Specimen(s): none sent Prosthetic devices, grafts, tissues, transplants, or devices: Kaiser [employer] Nephew 48 mm R3, 15 mm screw, 32 x 48 polyethylene liner, size 4 standard offset stem, 32 by -3 Oxinium head Estimated Blood Loss (mL): 250 Blood products transfused: none Procedure in detail: The patient was brought to the operating room. Patient was carefully positioned in the supine position. Time-out was performed and antibiotics were given. Anesthesia was induced. She was positioned in the on the table in order to allow hyperextension of the hip. The right lower extremity was prepped and draped in a standard sterile fashion. An anterior right hip incision was made 1 fingerbreadth lateral to the anterior superior iliac spine and extended distally towards the greater trochanter. Dissection was carried out through skin and subcutaneous tissues. The skin and subcutaneous tissues were carefully injected with Lidocaine with epi. Superficial hemostasis was achieved. The fascia over the tensor fascia freddy was defined and incised with a knife. Two Allis clamps were used to grasp the fascia. Tensor fascia freddy was retracted laterally. A gelpi retractor was placed. Dissection was carried out down along the neck. The circumflex vessels were carefully identified and cauterized with the Aqua Mantis. There was good visualization of the femoral neck. A Cobra was placed superior to the neck and the gluteus fibers were carefully stripped from that superior aspect of the capsule. A 2nd retractor was placed along the inferior aspect of the neck. The rectus insertion along the capsule was partially released. A 3rd retractor that was then gently placed over the rim of the acetabulum under the rectus. Capsule was carefully incised and released from the intertrochanteric line circumferentially superior to the mid sagittal line and inferiorly to the mid sagittal line until the lesser trochanter was palpable. A tag stitch was placed both in the superior and inferior limb of the capsular insertion. Along the acetabulum capsule was also released up to the mid sagittal 12:00 position. A portion of the labrum was resected. A saw was used to perform an osteotomy at the level of the intertrochanteric line and the junction of the superior femoral neck leaving approximately 1 finger breath of residual inferior neck above the lesser trochanter. A 2nd cut was made along the femoral neck at the base of the head and a napkin ring of neck was removed. Corkscrew was placed in the femoral head and the head was removed without difficulty. Retractors were then repositioned around the acetabulum. Residual labrum was resected and additional osteophytes were removed. A reamer that was 4 mm below the templated size was placed by hand in the acetabulum and it was reamed to centralize the acetabulum. It was then reamed up to 2 under the templated size and fluoroscopy was brought in to confirm the position of the reaming and depth of reaming. I reamed 1 under the anticipated size and touched the rim with line to line reaming. A trial cup was placed and noted that it was appropriately sized and fluoroscopy confirmed position and depth. The component was open and inserted without difficulty fluoroscopic imaging was used to confirm that the cup had been adequately seated and was well positioned. A single 15 mm screw was placed to further stabilize the cup. Neutral poly liner was placed. The cup was tested and noted to be stable. Attention was then directed to the femur. The femur was gently hyperextended additional capsular release was performed as needed in order to allow adequate visualization of the proximal femur with elevation of the femur. Patient was placed in a hyperextended slightly adducted position with maximum external rotation. Box osteotome was used to check for any residual neck as well as sclerotic bone along the trochanter. Boston pepper was placed in the femur. Additional broaching was performed. Canal finder was used to determine the alignment of the canal and position. Size 1 broach was placed. The canal was then appropriately broached up to the templated size as long as there was adequate stability of the broach and serial advancement of the broach without excessive impingement. Specific attention was directed at avoiding varus attempting to direct the distal aspect of the broach more anteriorly and avoiding excessive anteversion. Trial reduction showed acceptable range of motion, good stability, no posterior impingement, adventist of leg length and appropriate lateral shuck. I also hyperflexed the hip and checked that there was no impingement anteriorly and there was good stability with flexion, adduction and internal rotation. Marcaine and Exparel were injected. The stem was placed without difficulty. Repeat trial reduction and x-ray showed acceptable overall position, length, and no evidence of the femoral fracture. Final head was placed. Wound was meticulously irrigated with normal saline. The hip was reduced and additional Exparel and Marcaine were injected. The capsule was closed with interrupted nonabsorbable sutures. The fascia of the tensor was closed with interrupted and running Vicryl. No drain was placed. Any tensor fascia freddy muscle that appeared to be contused or injured which was a minimal amount was carefully resected. Capsule around the tensor was injected with Exparel and Marcaine. The skin was closed with barbed stitches for the subcutaneous tissue and skin. We also used surgical glue. The wound was dressed sterilely. Brief Betadine soak was also used and was meticulously irrigated with normal saline. Patient was transferred to recovery room in satisfactory condition. Complications: none Post-operative Condition: stable Disposition: Acute Care Plan for aftercare: The patient will be maintained on a standard total hip replacement protocol with weight bearing as tolerated and anterior hip precautions. The patient will receive Aspirin and sequential compression devices for DVT prophylaxis. The patient will be discharged home when safe for the home environment.
[2020-01-10] MEDS: CEFAZOLIN 2 GM/100 ML FROZ.PIGGY IV ×2 (08:00→16:59)
[2020-01-10] MEDS: TRANEXAMIC ACID 1,000 MG VIAL 1000 MG INJ ×2 (08:22→10:48)
--- NOTE | 2020-01-10 08:33 | SUR.OPER ---
Supine on padded Hunter table with bilateral legs secured in padded positioning boots and suspended in positioning spars, operative leg in traction per surgeon. Head on one pillow. Arm on non-operative side secured on padded armboard <90 degrees abduction. Arm on operative side padded and resting across chest then secured with tape over sheet. Padded perineal post in place per surgeon.
[2020-01-10] MEDS: BUPIVACAINE 0.25% W/ EPI 30 ML VIAL 60 ML INJ (08:46)
[2020-01-10] MEDS: BUPIVACAINE LIPOSOME 266 MG/20 ML VIAL INJ (08:47)
[2020-01-10] MEDS: SODIUM CHLORIDE IRRIG SOLUTION 250 ML, POVIDONE-IODINE SPONGE STICKS 1 APPLIC IRR (08:49)
--- NOTE | 2020-01-10 12:17 | CM.DANOTE ---
DCP: Case received, EMR reviewed and met with patient. , Carmine, also at bedside. Patient just came back from surgery. Introduced self and role. Was able to obtain information regarding patient's baseline activity level prior to surgery. DCP assessment completed with information currently available. Patient is a 69 year old female who admitted early this morning to the care of the orthopedic team. PCP: Dr. Naranjo. Payer: confirmed: Medicare/[facility]. Patient came to the hospital for a surgical procedure. She had a right hip arthroplasty, for she has history of arthritis of her right hip. Met with patient and in her room. She is alert and oriented. She now has a walker for use, but prior to surgery, she was not using a walker, only a walking stick. Patient resides in [place] with her spouse, Carmine, and he recently retired, so he will be helping her out at home. Patient is independent, has been driving, and is already set up with outpatient P.T at [facility]. P: DCP to continue to follow. She will be working with P.T. Patient should be able to go home when medically cleared, and P.T. evaluation. Millie Dsouza RN/Interactive Media Marketing Strategist
[2020-01-10] MEDS: LACTATED RINGERS 1,000 ML 125 ML IV (13:28)
[2020-01-10] MEDS: IBUPROFEN 400 MG TABLET PO ×3 (13:28→20:39)
[2020-01-10] MEDS: ACETAMINOPHEN 325 MG TABLET 650 MG PO ×2 (13:34→20:40)
--- NOTE | 2020-01-10 14:47 | PT.IIE ---
Current Diagnoses Unilateral primary osteoarthritis, right hip (01/10/20) Surgery Performed Operation Date: 01/10/20 07:45 Actual Procedures p Total Hip Arthroplasty/Anterior Approach(Right) - Shira Kaiser MD Surgical History (Last Updated 12/27/19 @ 09:59 by Judy Lam, RN) History of section (Acute) History of lumbar fusion (Acute 09/17/18) History of total left hip arthroplasty (Acute ~12/2016) Hx of microdiscectomy (Acute 07/28/17) Medical History (Last Updated 09/02/18 @ 09:57 by Judy Lam RN) Depression (Acute) Hyperlipidemia (Acute) Migraines (Acute) Physical Therapy Inpatient Evaluation/Re-Eval M1 PT/OT-IP Prior Functional Status Start: 01/10/20 16:14 Freq: NEEDED Status: Active Protocol: Document 01/10/20 14:47 AB (Rec: 01/10/20 16:25 AB [id number]) Medical Review Prior Functional Status Medical History Reviewed Yes Communication able to make needs known Mobility and Gait pt stated that she is modified independent with all mobilities and ambulation without AD Social History Household Members spouse Living Arrangements House Number of Floors (Floors) One Floor Number of Stairs To Enter/Railing? 4 steps to enter with R rail ascending Home Environment Standard Height Toilet,Walk in Shower Home Equipment Front Wheel Walker,Bedside Commode,Raised Toilet Seat w/ Armrests Additional Social History Comment pt also has 2 walking sticks M2 PT-IP Current Condition Start: 01/10/20 16:14 Freq: NEEDED Status: Active Protocol: Document 01/10/20 14:47 AB (Rec: 01/10/20 16:25 AB [id number]) Physical Therapy Current Condition Current Condition Evaluation Date 01/10/20 Treatment Diagnosis s/p R EULALIA anterior approach; difficulty in walking Onset Date 01/10/2020 Precautions Anterior Hip Precautions No Hip Extension,No Hip External Rotation Weight Bearing Status Weight Bearing Status Weight Bear as Tolerated Allowed Weight Bearing Amount (enter % RLE WBAT or #) (%) M3 PT-IP Subjective Start: 01/10/20 16:14 Freq: NEEDED Status: Active Protocol: Document 01/10/20 14:47 AB (Rec: 01/10/20 16:25 AB [id number]) Subjective Physical Therapy Visit Type Type Initial Evaluation Visit Start Time 14:47 Visit Stop Time 15:31 Total Visit Minutes 44 Number of BOOK PUBLISHER Visits 0 Physical Therapy Visit Comments Patient Comments pt agreeable to do PT Therapy Pain Assessment Pain When Pain Assessed At Rest Pain Present Pain Present Pain Reported Location right hip Intensity 4 Scale Used Numeric (1 - 10) Description Aching Pain Management Techniques Apply Cold,Re-positioning, Timing of Activity with Medications M4 PT-IP Mobility and Gait Start: 01/10/20 16:14 Freq: NEEDED Status: Active Protocol: Document 01/10/20 14:47 AB (Rec: 01/10/20 16:25 AB [id number]) PT-Bed Mobility Assessment Supine to Sit Supine to Sit Standby Assistance Scooting Scooting to Edge of Bed Standby Assistance PT-Transfer Assessment Sit to and From Stand Sit to and from Stand Contact Guard Assistance,1 Person Assistance,Use of Upper Extremities Equipment Transfer Assistive Device Gait Belt,Front Wheeled Walker Orthotic/Prosthetic Devices or Brace: No Transfers Transfer Destination Toilet Transfer Technique ambulated using FWW Transfer Ability Level of Assist Contact Guard Assistance, Minimal Assistance,1 Person Assistance,Use of Upper Extremities Comments Mobility Comments completed supine to sit SBA. pt was able to sit on EOB SBA. completed sit to stand CGA and ambulated towards the toilet using FWW CGA to min A and cues for safety. completed sit<>stand from the toilet CGA. pt has (+) LOB with standing while managing her brief requiring min A for steadiness. pt ambulated from the toilet towards the sink using FWW CGA to min A and cues and was able to maintain standing while completing handwashing CGA. pt agreed to sit up on the chair. ambulated towards the chair using FWW CGA to min A. positioned pt on the chair. call light and table placed within reach. ice pack provided. Gait Assessment Gait Gait Assistance Required: Contact Guard Assist,Minimum Assistance Distance (Feet) 12 Able to Maintain Weight Bearing Status Yes During Gait Assistive Devices Assistive Device Gait Belt,Front Wheeled Walker Orthotic/Prosthetic Devices or Brace: No Gait Deviations General Gait Pattern Antalgic,Decreased Stride Length,Decreased Feet Clearance,Step-to Gait Factors Limiting Gait Function Factors Limiting Gait Function Decreased Activity Tolerance, Decreased Strength,Pain,Poor Balance Comments Gait Comments pls refer to mobiltiy section for details PT-Balance Assessment Sitting Balance and Reactions Static Sitting Balance Ability Good Dynamic Sitting Balance Ability Good Standing Balance and Reactions Static Standing Balance Ability Fair Dynamic Standing Balance Ability Fair Device Used FWW M5 PT-IP Objective Assessments Start: 01/10/20 16:14 Freq: NEEDED Status: Active Protocol: Document 01/10/20 14:47 AB (Rec: 01/10/20 16:25 AB [id number]) Orientation Orientation/Cognition Level of Alertness Alert Orientation Name,Age,Birthday,Month,Date, Year,Day of Week,Place, Situation Language Function Ability No Deficits Noted Safety Awareness Understands Safety Issues Memory Description Short Term Impaired Gross Range of Motion Lower Extremity ROM Assessment Within Functional Limits Strength Lower Extremity Strength Assessment Right Impaired Hip 3+/5 Knee 4-/5 Coordination Assessment Gross Coordination Gross Coordination WNL Sensation Assessment Sensation Gross Sensation WNL Muscle Tone Muscle Tone WNL Yes M6 PT-IP Treatment Start: 01/10/20 16:14 Freq: NEEDED Status: Active Protocol: Document 01/10/20 14:47 AB (Rec: 01/10/20 16:25 AB [id number]) Physical Therapy Treatment Education Education Provided Precautions,Weight Bearing Status,Post-Op Packet,Safety M7 PT-IP Assessment and Plan Start: 01/10/20 16:14 Freq: NEEDED Status: Active Protocol: Document 01/10/20 14:47 AB (Rec: 01/10/20 16:25 AB [id number]) PT Summary Assessment and Plan Potential Rehabilitation Potential Good Status of Condition at Evaluation Stable Summary Impairments Pain,Strength,Balance,Bed Mobility,Transfers,Gait, Activity Tolerance Assessment Summary pt requiring CGA to min A with mobility and will likely progress during hospital stay. pt just had surgery this morning. pt plans to go home and spouse will be able to assist her. will conduct caregiver training when appropriate as well as stair climbing training prior to d/c . pt stated that she is already set up for outpt PT. Goals Bed Mobility Goal Independent Transfer Goal Independent,Front Wheeled Walker Gait Goal Independent,Front Wheel Walker Gait Distance 200 Other Goals up/down 4 steps R rail ascending SBA Days to Meet Goals 3 Frequency of Treatment Frequency Of Treatment Twice a Day Treatment Plan Physical Therapy Treatment Plan Bed Mobility Training,Transfer Training,Gait Training, Therapeutic Exercise,Balance Retraining,Post Op Education, Discharge Planning,Hot or Cold Pack,Neuromuscular Re-ed, Coordination Retraining,Manual Therapy Other Recommendations and Next Treatment caregiver training, stair Focus climbing training Recommendations To Nursing Amount of Assist Needed 1 Person Assist Discharge Recommendations PT Discharge Recommendations Home with Assistance, Outpatient PT Transportation Needs at Discharge Private Vehicle
[2020-01-10] MEDS: TRAMADOL 50 MG TABLET PO (20:39)
[2020-01-10] MEDS: ATORVASTATIN 20 MG TABLET 40 MG PO (20:39)
[2020-01-10] MEDS: CITALOPRAM 20 MG TABLET PO (20:39)
[2020-01-10] MEDS: DOCUSATE 100 MG CAPSULE PO (20:40)
[2020-01-10] MEDS: ASPIRIN EC 81 MG TABLET PO (20:40)
--- NOTE | 2020-01-10 22:28 | PC.NURSE ---
Evening Shift Note- Patient alert and oriented and able to make needs known to staff. Patient pleasent, calm, and cooperative with care. PRN PO Ultram given with 2100 medications. Patient tolerated without issue. No complaints of n/v. Dressing to hip c/d/i. Patient requires SBA w/ Walker. safety measures in place. Patient [id number] appropriatly for assistance. call fong and phone within reach. Will continue to monitor.
[2020-01-11] VITALS: BP 111/54; PULSE 84; RESP 16; TEMP 36.7; O2SAT 97
[2020-01-11] MEDS: CEFAZOLIN 2 GM/100 ML FROZ.PIGGY IV
[2020-01-11] MEDS: IBUPROFEN 400 MG TABLET PO ×3 (00:01→08:22)
[2020-01-11 04:10] VITALS: BP 115/59; PULSE 83; RESP 16; TEMP 37.3; O2SAT 98
[2020-01-11] MEDS: OXYCODONE IR 5 MG TABLET PO ×2 (05:55→10:01)
[2020-01-11 06:00] LABS: Hemoglobin 10.9 g/dL (12.0-16.0)
[2020-01-11 07:50] VITALS: BP 121/66; PULSE 75; RESP 16; TEMP 36.6; O2SAT 99
--- NOTE | 2020-01-11 08:16 | PM.PNPO.1 ---
Subjective Subjective Date Patient Seen: 01/11/20 Time Patient Seen: 08:16 Interval history: POD #1 s/p right total hip arthroplasty anterior approach with Dr. Kaiser. Patient's pain is well controlled this morning with oxycodone, Tylenol, and ibuprofen. ASA for DVT prophylaxis. She is doing really well this morning. She is waiting for physical therapy to come this morning. Exam Vital Signs (past 8 hours): - 01/11/20 04:10 Temperature 99.2 F Pulse Rate 83 Respiratory Rate 16 Blood Pressure 115/59 L Pulse Oximetry 98 Oxygen Delivery Method Room Air Oxygen Flow Rate 0 Narrative Exam Narrative: Patient is sitting at bedside chair no acute distress. She is alert oriented x3. Calves are soft, compressible, nontender bilaterally. She is able to actively dorsiflex and plantar flex. Sensation intact light touch throughout bilateral lower extremities. Pulses are symmetrical. Objective Labs Result Diagrams: 01/11/20 05:28 Labs: Laboratory Results - last 24 hr 01/11/20 05:28 Hgb 10.9 L Hct 33.0 L Assessment & Plan Post-op Postoperative Procedures: Procedures Operation Date: 01/10/20 07:45 Actual Procedures Side Surgeon p Total Hip Arthroplasty/Anterior Approach Right Shira Kaiser MD Patient will mobilize with physical therapy today. Anterior hip precautions in place. Continue ASA for DVT prophylaxis. She is provided a prescription for oxycodone for pain control today. If patient is mobilizing safely, with adequate pain control she can discharge home today. Quality VTE Deep Vein Thrombosis/Pulmonary Embolism Present on Admission: No
[2020-01-11] MEDS: DOCUSATE 100 MG CAPSULE PO (08:22)
[2020-01-11] MEDS: ASPIRIN EC 81 MG TABLET PO (08:22)
[2020-01-11] MEDS: SODIUM CHLORIDE 0.9% FLUSH 10 ML IV (08:23)
[2020-01-11] MEDS: INFLUENZA VACCINE 0.5 ML SYRINGE IM (08:24)
--- NOTE | 2020-01-11 09:35 | PT.IPTN ---
Current Diagnoses Unilateral primary osteoarthritis, right hip (01/10/20) Surgery Performed Operation Date: 01/10/20 07:45 Actual Procedures p Total Hip Arthroplasty/Anterior Approach(Right) - Shira Kaiser MD Physical Therapy Treatment Note M2 PT-IP Current Condition Start: 01/10/20 16:14 Freq: NEEDED Status: Active Protocol: Document 01/10/20 14:47 AB (Rec: 01/10/20 16:25 AB [id number]) Physical Therapy Current Condition Current Condition Evaluation Date 01/10/20 Treatment Diagnosis s/p R EULALIA anterior approach; difficulty in walking Onset Date 01/10/2020 Precautions Anterior Hip Precautions No Hip Extension,No Hip External Rotation Weight Bearing Status Weight Bearing Status Weight Bear as Tolerated Allowed Weight Bearing Amount (enter % RLE WBAT or #) (%) M3 PT-IP Subjective Start: 01/10/20 16:14 Freq: NEEDED Status: Active Protocol: Document 01/11/20 09:35 AB (Rec: 01/11/20 10:25 AB [email or web address]) Subjective Physical Therapy Visit Type Type Treatment Note Visit Start Time 09:35 Visit Stop Time 09:54 Total Visit Minutes 19 Number of ELECTRICAL LINESWORKER Visits 0 Physical Therapy Visit Comments Patient Comments i feel ok Therapy Pain Assessment Pain When Pain Assessed At Rest Pain Present Pain Present Pain Reported Location right hip Intensity 4 Scale Used Numeric (1 - 10) Pain Management Techniques Re-positioning,Timing of Activity with Medications M4 PT-IP Mobility and Gait Start: 01/10/20 16:14 Freq: NEEDED Status: Active Protocol: Document 01/11/20 09:35 AB (Rec: 01/11/20 10:25 AB [email or web address]) PT-Bed Mobility Assessment Rolling Type of Rolling Log Rolling Level of Assist Standby Assistance Supine to Sit Supine to Sit Standby Assistance Sit to Supine Sit to Supine Standby Assistance Scooting Scooting to Edge of Bed Standby Assistance Scooting Up and Down in Bed Standby Assistance PT-Transfer Assessment Sit to and From Stand Sit to and from Stand Standby Assistance Equipment Transfer Assistive Device Gait Belt,Front Wheeled Walker Orthotic/Prosthetic Devices or Brace: No Gait Assessment Gait Gait Assistance Required: Standby Assistance Distance (Feet) 350 Able to Maintain Weight Bearing Status Yes During Gait Assistive Devices Assistive Device Gait Belt,Front Wheeled Walker Orthotic/Prosthetic Devices or Brace: No Gait Deviations General Gait Pattern Antalgic,Decreased Stride Length,Decreased Feet Clearance Factors Limiting Gait Function Factors Limiting Gait Function Decreased Strength,Pain,Poor Balance Comments Gait Comments pt seen walking with nurse and PT took over. pt ambulated towards the stair using FWW SBA. completed up/down steps using R rail ascending SBA. ambulated back to her room using FWW SBA. completed supine<>sit SBA. reviewed hip precautions and pt able to recall without cues . pt wants to stay in bed to rest. positioned pt in bed. call light and table placed within reach. Stair Climbing Assessment Evaluation Level of Assist On Stairs Standby Assistance Devices Stair Climbing Assistive Devices Right Railing Technique/Endurance Stair Climbing Direction Ascend and Descend Stair Climbing Technique Step to Step Number of Steps Climbed 3 Stair Climbing Set # Repetitions (reps) 2 M5 PT-IP Objective Assessments Start: 01/10/20 16:14 Freq: NEEDED Status: Active Protocol: Document 01/10/20 14:47 AB (Rec: 01/10/20 16:25 AB [id number]) Orientation Orientation/Cognition Level of Alertness Alert Orientation Name,Age,Birthday,Month,Date, Year,Day of Week,Place, Situation Language Function Ability No Deficits Noted Safety Awareness Understands Safety Issues Memory Description Short Term Impaired Gross Range of Motion Lower Extremity ROM Assessment Within Functional Limits Strength Lower Extremity Strength Assessment Right Impaired Hip 3+/5 Knee 4-/5 Coordination Assessment Gross Coordination Gross Coordination WNL Sensation Assessment Sensation Gross Sensation WNL Muscle Tone Muscle Tone WNL Yes M6 PT-IP Treatment Start: 01/10/20 16:14 Freq: NEEDED Status: Active Protocol: Document 01/11/20 09:35 AB (Rec: 01/11/20 10:25 AB [email or web address]) Physical Therapy Treatment Education Education Provided Precautions,Safety M7 PT-IP Assessment and Plan Start: 01/10/20 16:14 Freq: NEEDED Status: Active Protocol: Document 01/11/20 09:35 AB (Rec: 01/11/20 10:25 AB [email or web address]) PT Summary Assessment and Plan Potential Rehabilitation Potential Good Summary Impairments Pain,ROM,Strength,Balance,Bed Mobility,Transfers,Gait, Activity Tolerance Progress Towards Goals Progressing Toward Goals Assessment Summary pt doing well with mobility and plans to go home today. spouse will be able to assist pt at home and pt is set up for outpt PT. pt may go home when medically stable. Goals Bed Mobility Goal Independent Transfer Goal Independent,Front Wheeled Walker Gait Goal Independent,Front Wheel Walker Gait Distance 200 Other Goals up/down 4 steps R rail ascending SBA Days to Meet Goals 3 Frequency of Treatment Frequency Of Treatment Twice a Day Treatment Plan Physical Therapy Treatment Plan Bed Mobility Training,Transfer Training,Gait Training, Therapeutic Exercise,Balance Retraining,Post Op Education, Discharge Planning,Hot or Cold Pack,Neuromuscular Re-ed, Coordination Retraining,Manual Therapy Other Recommendations and Next Treatment caregiver training, stair Focus climbing training Recommendations To Nursing Amount of Assist Needed 1 Person Assist Discharge Recommendations PT Discharge Recommendations Home with Assistance, Outpatient PT Transportation Needs at Discharge Private Vehicle
--- NOTE | 2020-01-11 10:07 | PC.NURSE ---
Addendum entered by Sierra Lim R.N. 01/11/20 13:03: Went over dc meds and instructions with patient, questions answered. Patient taken via wc to vehicle driven by spouse, patient had all belongings. Original Note: Patient alert, oriented rates pain 4/10 after physical therapy, given 5mg oxycodone. Patient discharging later this afternoon.
--- NOTE | 2020-01-11 15:45 | CM.DPC ---
DCP Discharge Home Per MD, pt is medically stable to d/c home today with spouse and no identified barriers to discharge. Per PT, pt was able to ambulate well and recommending safe d/c home with spouse assist and outpt PT. Per RN, no concerns at this time. Plan: Patient to d/c home today via spouse POV and he is available to assist at home and outpt PT already set up. No SW needs at this time. BOBBI Jane
== END 2020-01-11 13:03 | disposition home or self-care (01) | DRG 470 ==
PROVIDERS: Admitting Provider Orthopaedic Surgery; PCP Family Medicine; Referring Provider Orthopaedic Surgery; Visit Provider Orthopaedic Surgery
PROC: 0SR906Z Replacement of Right Hip Joint with Oxidized Zirconium on Polyethylene Synthetic Substitute, Open Approach (ICD-10-PCS; CPT 27130; principal; 2020-01-10 07:45)
DX: M16.11 Unilateral primary osteoarthritis, right hip (principal); F41.9 Anxiety disorder, unspecified; Z96.642 Presence of left artificial hip joint; Z87.891 Personal history of nicotine dependence
CPT/HCPCS: 36415; 73502; 76000; 85014; 85018; 90471; 90656; 97116; 97161; 97530; C1776; C9290; J0690; J1100; J2704; J3010; Q2038

== ENCOUNTER → 2020-07-25 12:24 | Outpatient (CLI) | payer MEDICARE, OTHER, SELFPAY ==
[2020-01-10 13:34] VITALS: BMI 26.8
--- NOTE | 2020-07-25 | DI.MRI.S_ITS ---
BREAST MRI OF BOTH BREASTS- WITH CAD: 07/25/2020 CLINICAL: Breast cancer. Comparison is made to exams dated: 07/11/2020 mammogram, 06/27/2020 mammogram, 06/12/2020 mammogram, and 01/19/2018 mammogram - outside location. Informed consent was obtained from the patient. 20 cc of ProHance (Gadoteridol) nonionic contrast was injected. Axial T1, T2, sagittal T1, and pre and post contrast T1 images were obtained with a dedicated breast coil. Post processing was performed including computer aided calculations of any tumor volumes and dimensions. There is mild background parenchymal enhancement. Right breast: No discrete mass or suspicious enhancement to suggest malignancy. Left breast: Within the left breast at the 2 o'clock position, in the middle to posterior 3rd in depth, there is a lobulated mass with spiculated margins measuring approximately 3.1 x 2.7 x 3.0 cm corresponding to patient's biopsy-proven malignancy. There is magnetic susceptibility artifact corresponding to the biopsy clip. Kinetic enhancement curves demonstrate internal areas of rapid initial enhancement with washout. There is a small adjacent enhancing satellite focus measuring up to 0.5 cm approximately 0.9 cm inferior to the mass. This demonstrates rapid initial uptake with plateau. More posteriorly at the 3 o'clock position, there is an oval enhancing focus measuring up to 0.5 cm likely representing a lymph node. Elsewhere within the left breast, no suspicious mass or abnormal enhancement to suggest multicentric disease. Miscellaneous: No definite axillary or internal mammary lymphadenopathy by size criteria. IMPRESSION: KNOWN BIOPSY PROVEN MALIGNANCY 1. Enhancing lobulated spiculated mass at the 2 o'clock position in the left breast corresponding to patient's biopsy-proven malignancy. 2. Small adjacent enhancing focus demonstrated inferior to the mass in with suspicious kinetic enhancement curves likely represents a satellite focus of disease. 3. Small enhancing focus in the posterior left breast at the 3 o'clock position likely represents a low axillary or internal mammary lymph node. Given its proximity to the mass, metastatic disease is not excluded. If clinically indicated, a second-look ultrasound be performed to evaluate for a corresponding mass and subsequent ultrasound-guided biopsy. 4. No definite evidence of multicentric or contralateral disease. 5. No axillary or internal mammary lymphadenopathy by size criteria. This exam was interpreted at Station ID: [id number]. Electronically Signed By: Jose Kumar M.D. ddp/:07/26/2020 13:06:26 copy to: ANTELMO TOSCANO ACR BI-RADS Category 6: Known biopsy proven malignancy [id number]
== END ==
PROVIDERS: PCP Family Medicine; Referring Provider Specialist; Visit Provider Specialist
DX: C50.412 Malignant neoplasm of upper-outer quadrant of left female breast (principal)
CPT/HCPCS: 77049; A9579

== ENCOUNTER → 2020-08-02 13:52 | Outpatient (CLI) | payer MEDICARE, OTHER, SELFPAY ==
[2020-01-10 13:34] VITALS: BMI 26.8
--- NOTE | 2020-08-02 14:14 | DI.US.S_ITS ---
Patient Name: JERAMIE IEYR date: 1950 Sex: F Attending Physician: Vishnu Indications: Date: 08/02/2020 14:11 At the request of: SAMIRA WAED Procedure: US breast LT limited LIMITED ULTRASOUND OF LEFT BREAST: 08/02/2020 CLINICAL: Abnormal MRI; known malignancy. Comparison is made to exams dated: 07/25/2020 breast MRI - [facility], 07/11/2020 mammogram, 06/27/2020 mammogram, 06/27/2020 ultrasound, 06/12/2020 mammogram, and 02/15/2019 mammogram - outside location. Color flow and real-time ultrasound of the left breast 3 o'clock region were performed. Khan scale images of the real-time examination were reviewed. There is a 0.5 cm x 0.5 cm x 0.5 cm normal lymph node in the left breast at 3 o'clock posterior depth 11 cm from the nipple. It has a uniformly thin cortex at 1.7 mm. This normal lymph node displays fatty hilum. This correlates with breast MRI findings. Color flow imaging demonstrates that there is no increase in vascularity. IMPRESSION: PROBABLY BENIGN The 0.5 cm x 0.5 cm x 0.5 cm lymph node in the left breast has morphology consistent with a normal lymph node and is probably benign. Continued follow up with surgery/ oncology. Findings and recommendations were conveyed to the patient at time of exam. This exam was interpreted at Station ID: [id number]. Electronically Signed By: Saundra flor/:08/03/2020 10:59:35 Ultrasound BI-RADS: 3 Probably benign
== END ==
PROVIDERS: PCP Family Medicine; Referring Provider Family Medicine; Visit Provider Specialist
DX: R92.8 Other abnormal and inconclusive findings on diagnostic imaging of breast (principal)
CPT/HCPCS: 76642

== ENCOUNTER → 2024-12-16 10:10 | Outpatient (CLI) | payer MEDICARE, OTHER, SELFPAY ==
[2020-01-10 13:34] VITALS: BMI 26.8
--- NOTE | 2024-12-16 | DI.MRI.S_ITS ---
PROCEDURE: MR LUMBAR SPINE WO CON INDICATIONS: LUMBAR PAIN TECHNIQUE: Noncontrast sagittal T1 spin echo and T2 fast echo, sagittal STIR, and T2 fast spin echo through the lumbar spine. In cases with scoliosis, additional coronal T2 fast spin echo may be performed. COMPARISON: None. FINDINGS: Image quality: Excellent. Alignment and Curvature: There is normal bony alignment. Bone Marrow: Posterior fusion is present at the L5-S1 level with laminectomy. Marrow is of normal overall signal. No acute vertebral body compression fractures. Spinal Cord: Conus medullaris terminates at the L1-2 level. There is a 2.3 millimeter syrinx involving the central portion of the conus medullaris at the T12-L1 level. Paraspinous Soft Tissues: No paravertebral masses. T12-L1: No central spinal stenosis or neural foraminal stenosis. L1-L2: No evidence of central spinal stenosis or neural foraminal stenosis. AP diameter measures 14.8 millimeters. L2-L3: No significant central spinal stenosis. There is mild bilateral neural foraminal encroachment. AP diameter spinal canal measures 14.9 millimeters. L3-L4: There is moderate degenerative disc disease at this level. There is circumferential disc bulging. There is facet arthropathy with ligamentum flavum hypertrophy. The AP diameter spinal canal measures 11.7 millimeters. There is moderate left and [id number] right neural foraminal encroachment. L4-L5: There is a broad-based disc bulge at this level. There is a left neural foraminal disc protrusion resulting in an moderate to severe neural foraminal stenosis. There is mild right neural foraminal stenosis. Posterior laminectomy is present. L5-S1: No significant central spinal stenosis or neural foraminal stenosis is identified. IMPRESSION: L4-5 broad-based disc bulge with focal left neural foraminal protrusion resulting in moderately severe neural foraminal stenosis. Small syrinx involving the conus medullaris. Dictated by: Missy Villavicencio M.D. on 12/16/2024 at 11:39 Approved by: Missy Villavicencio M.D. on 12/16/2024 at 12:05
--- NOTE | 2024-12-16 | DI.CT.S_ITS ---
PROCEDURE: CT LUMBAR SPINE WO CON INDICATIONS: LUMBAR PAIN TECHNIQUE: Noncontrast 3 mm thick sections acquired from the T12 level to the sacrum. Sagittal and coronal reformats were constructed. For radiation dose reduction, the following was used: automated exposure control. COMPARISON: None. FINDINGS: Image quality: Excellent. Bones: There has been a previous posterior fusion at the L5-S1 level with laminectomy. No evidence of hardware failure. There is a mild grade 1 anterolisthesis of L4 on L5. No acute vertebral body compression fractures. No suspicious lytic or blastic bony lesions. No pars defects. T12-L1: No significant central spinal stenosis or neural foraminal stenosis. L1-L2: No significant central spinal stenosis or neural foraminal stenosis. L2-L3: Mild circumferential disc bulging without evidence of central spinal stenosis or significant neural foraminal stenosis. L3-L4: Moderately advanced degenerative disc disease at this level with circumferential bulging. Mild bilateral neural foraminal encroachment. AP diameter spinal canal measures 9.1 mm. L4-L5: There is broad-based circumferential disc bulge at this level. There is moderately severe left neural foraminal stenosis and moderate right neural foraminal stenosis. The AP diameter spinal canal measures 12.4 mm. There is a left laminectomy. There is a mild anterolisthesis. L5-S1: There is a left laminectomy. No significant central spinal stenosis. Mild left neural foraminal stenosis. Soft tissues: No retroperitoneal masses or hematomas. Visualized aorta is normal in caliber. IMPRESSION: Degenerative disc disease most significant at the L4-5 level with moderately severe left neural foraminal stenosis. Dictated by: Missy Villavicencio M.D. on 12/16/2024 at 13:06 Approved by: Missy Villavicencio M.D. on 12/16/2024 at 13:12
== END ==
PROVIDERS: PCP Family Medicine; Referring Provider Orthopaedic Surgery Orthopaedic Surgery of the Spine; Visit Provider Orthopaedic Surgery Orthopaedic Surgery of the Spine
DX: M51.360 Other intervertebral disc degeneration, lumbar region with discogenic back pain only (principal); M48.061 Spinal stenosis, lumbar region without neurogenic claudication; M51.26 Other intervertebral disc displacement, lumbar region; Z98.1 Arthrodesis status
CPT/HCPCS: 72131; 72148